=== PATIENT | male | born 1975 | race Caucasian/White ===

== ENCOUNTER 2016-08-07 19:33 | Observation (INO) | payer MEDICAID ==
[2016-08-07] MEDS ORDERED: ONDANSETRON PF 4 MG/2 ML VIAL. IV PRN (20:00)
[2016-08-07] MEDS ORDERED: ENOXAPARIN 40 MG/0.4 ML DISP.SYRIN. SQ SCH (20:00)
[2016-08-07] MEDS ORDERED: ACETAMINOPHEN 325 MG TABLET. PO PRN (20:00)
--- NOTE | 2016-08-07 20:06 | PDOC1 ---
History and Physical Date of Admission Date of Admission 08/07/16 Identification/Chief Complaint Chief Complaint cannot take care of himself Problems: Source Source: Caregiver, Chart review History of Present Illness History of Present Illness 41yo M, with h/o cerebral palsy, HLD, was found with his Mon in the car by the maintenance and custodian supervisor who sent the Mom to ER for AMS. hiS Mom, Monique Stout, is admitted today for AMS, amnesia. coming from [facility]. Pt is wheel chair bound, cannot live alone, ER nurse cannot reach the father, and another relative in [facility] cannot take him home today. As per the mother, who is also a patient now, who said he is doing ok, except some pain in scrotum area. Pt can answer a few questions, knows it is in hospital but cannot tell the name, can tell us he is hungry and pain. I was called to admit this patient because he cannot live alone, no place to go now, need SW. Past Medical History Past Medical History cerebral palsy, hld Past Surgical History Past Surgical History: No pertinent history Family History Family History Mother has psych issues, dm2 Social History Smoke: No ALCOHOL: none Drugs: None Current Problem List Problem List Problems Medical Problems: (1) Cerebral palsy Status: Acute ROS Review of System CONSTITUTIONAL: No fever or chills EYES: No recent changes SKIN: No rash or itching CARDIOVASCULAR: No chest pain, syncope, palpitations, or edema RESPIRATORY: No SOB or cough GASTROINTESTINAL: No nausea, vomiting or abdominal pain NEUROLOGICAL: No headaches or weakness ENDOCRINE: No cold or heat intolerance GENITOURINARY: No urgency or frequency of urination MUSCULOSKELETAL: No back pain or joint pain LYMPHATICS: No enlarged lymph nodes PSYCHIATRIC: No anxiety or depression Physical Exam Physical Exam GEN.: No apparent distress. Alert and orientedx2 HEENT: Head is normocephalic, atraumatic NECK: Supple. LUNGS: Clear to auscultation. HEART: RRR, S1, S2 present. Peripheral pulses intact ABDOMEN: Soft, nontender. Positive bowel sounds. EXTREMITIES: Without any cyanosis. NEUROLOGIC: Normal speech, normal tone. cannot move lower ext, upper ext bl symmetrically weak, 3/5. PSYCHIATRIC: Normal affect, normal mood. SKIN: No ulcerations. scrotum area some redness, no ulcer VTE Prophylaxis Ordered VTE Prophylaxis Devices: Yes VTE Pharmacological Prophylaxi: Yes Assessment/Plan Assessment/Plan 1. cerebral palsy, cannot take care of himself, need place to go 2. HLD 3. itchness of scrotum area plan: 1. SW consult need find relatives, or SNF 2. will double check with nurse to see if there is any wound around scrotum and groin area. may need nystatin cream labs need home meds dvt ppx wheel chair bound HENRRY MAGALLON MD Aug 07, 2016 20:06
[2016-08-07 20:48] VITALS: BP 129/92
[2016-08-07 21:18] LABS: BASO % 0 % (0-3); EOS % 1 % (0-3); HEMATOCRIT 46.3 % (39.0-53.0); HEMOGLOBIN 15.8 g/dL (13.0-17.5); LYMPH # 2.7 x10^3/uL (1.0-4.8); LYMPH % 45 % (24-48); MEAN CORPUSCULAR HEMOGLOBIN 31 pg (25-35); MEAN CORPUSCULAR HGB CONC 34 g/dL (31-37); MEAN CORPUSCULAR VOLUME 90 fL (79-100); MONO % 7 % (0-9); NEUT % 47 % (31-73); PLATELET COUNT 221 x10^3/uL (140-400); RED BLOOD COUNT 5.13 x10^6/uL (4.30-5.70); RED CELL DISTRIBUTION WIDTH 13.6 % (11.5-14.5)
[2016-08-07] MEDS ORDERED: CHOL200044 PO (22:48)
[2016-08-07] MEDS ORDERED: OMEG500C PO (22:48)
[2016-08-07] MEDS ORDERED: SERT50TA PO (22:48)
[2016-08-07] MEDS ORDERED: SIMV20TA3 PO (22:48)
[2016-08-07] MEDS ORDERED: CLOT15CR4 TP (22:49)
[2016-08-07 22:51] LABS: CALCIUM 9.4 mg/dL (8.5-10.1); CREATININE 0.8 mg/dL (0.7-1.3); GFR 107.6; POTASSIUM 3.1 mmol/L (3.5-5.1)
[2016-08-07 23:02] VITALS: BP 128/82
[2016-08-07] MEDS: HYDROCODONE/APAP 5/325MG TABLET. PO PRN (23:19)
[2016-08-07] MEDS ORDERED: INUL2TAB4 PO (23:29)
[2016-08-08 03:05] VITALS: BP 118/65
[2016-08-08 07:00] VITALS: BP 124/86
[2016-08-08] MEDS ORDERED: POTASSIUM CHLORIDE 20 MEQ TABLET.ER. PO ONE (08:45)
[2016-08-08] MEDS ORDERED: NYSTATIN 100,000 UNIT/GM TOPICAL CREAM 15GM TUBE. TP SCH (09:00)
[2016-08-08] MEDS: HYDROCODONE/APAP 5/325MG TABLET. PO PRN ×2 (09:56→10:02)
[2016-08-08] MEDS ORDERED: CLOTRIMAZOLE 1% TOPICAL CREAM 15GM TUBE. TP SCH (10:00)
--- NOTE | 2016-08-08 10:13 | PDOC ---
PROGRESS NOTES Chief Complaint Chief Complaint 1. cerebral palsy, chronic weakness and debility, poor mental status is at baseline, cannot take care of himself, 2. HLD 3. rash and pain in scrotum area 4. ? depression or anxiety, on sertraline at home, continue 5. hypokalemia, 40 PO History of Present Illness History of Present Illness SW consult need find relatives, may be able to locate today consult wound care for pain in scrotum and groin area. may need nystatin cream wheel chair bound Vitals Vitals Vital Signs Date Time Temp Pulse Resp B/P Pulse Ox O2 Delivery O2 Flow Rate FiO2 08/08/16 07:00 97.8 82 18 124/86 96 Room Air 97.8 Physical Exam Physical Exam very cooperative and pleasant General: Alert, Cooperative, No acute distress, Other (not oriented) Heart: Regular rate, Normal S1 Lungs: Clear Abdomen: Normal bowel sounds Extremities: No clubbing, No edema Labs LABS Laboratory Tests Test 08/07/16 20:50 White Blood Count 6.0x10^3/uL (4.0-11.0) Red Blood Count 5.13x10^6/uL (4.30-5.70) Hemoglobin 15.8g/dL (13.0-17.5) Hematocrit 46.3% (39.0-53.0) Mean Corpuscular Volume 90fL (79-100) Mean Corpuscular Hemoglobin 31pg (25-35) Mean Corpuscular Hemoglobin Concent 34g/dL (31-37) Red Cell Distribution Width 13.6% (11.5-14.5) Platelet Count 221x10^3/uL (140-400) Neutrophils (%) (Auto) 47% (31-73) Lymphocytes (%) (Auto) 45% (24-48) Monocytes (%) (Auto) 7% (0-9) Eosinophils (%) (Auto) 1% (0-3) Basophils (%) (Auto) 0% (0-3) Neutrophils # (Auto) 2.8x10^3uL (1.8-7.7) Lymphocytes # (Auto) 2.7x10^3/uL (1.0-4.8) Monocytes # (Auto) 0.4x10^3/uL (0.0-1.1) Eosinophils # (Auto) 0.1x10^3/uL (0.0-0.7) Basophils # (Auto) 0.0x10^3/uL (0.0-0.2) Sodium Level 144mmol/L (136-145) Potassium Level 3.1mmol/L (3.5-5.1) Chloride Level 105mmol/L (98-107) Carbon Dioxide Level 27mmol/L (21-32) Anion Gap 12 (6-14) Blood Urea Nitrogen 18mg/dL (8-26) Creatinine 0.8mg/dL (0.7-1.3) Estimated GFR (Cockcroft-Gault) 107.6 Glucose Level 131mg/dL (70-99) Calcium Level 9.4mg/dL (8.5-10.1) Assessment and Plan Assessmemt and Plan Problems Medical Problems: (1) Cerebral palsy Status: Acute Problems: Comment Review of Relevant I have reviewed the following items geoff (where applicable) has been applied. Labs Laboratory Tests Test 08/07/16 20:50 White Blood Count 6.0x10^3/uL (4.0-11.0) Red Blood Count 5.13x10^6/uL (4.30-5.70) Hemoglobin 15.8g/dL (13.0-17.5) Hematocrit 46.3% (39.0-53.0) Mean Corpuscular Volume 90fL (79-100) Mean Corpuscular Hemoglobin 31pg (25-35) Mean Corpuscular Hemoglobin Concent 34g/dL (31-37) Red Cell Distribution Width 13.6% (11.5-14.5) Platelet Count 221x10^3/uL (140-400) Neutrophils (%) (Auto) 47% (31-73) Lymphocytes (%) (Auto) 45% (24-48) Monocytes (%) (Auto) 7% (0-9) Eosinophils (%) (Auto) 1% (0-3) Basophils (%) (Auto) 0% (0-3) Neutrophils # (Auto) 2.8x10^3uL (1.8-7.7) Lymphocytes # (Auto) 2.7x10^3/uL (1.0-4.8) Monocytes # (Auto) 0.4x10^3/uL (0.0-1.1) Eosinophils # (Auto) 0.1x10^3/uL (0.0-0.7) Basophils # (Auto) 0.0x10^3/uL (0.0-0.2) Sodium Level 144mmol/L (136-145) Potassium Level 3.1mmol/L (3.5-5.1) Chloride Level 105mmol/L (98-107) Carbon Dioxide Level 27mmol/L (21-32) Anion Gap 12 (6-14) Blood Urea Nitrogen 18mg/dL (8-26) Creatinine 0.8mg/dL (0.7-1.3) Estimated GFR (Cockcroft-Gault) 107.6 Glucose Level 131mg/dL (70-99) Calcium Level 9.4mg/dL (8.5-10.1) Laboratory Tests Test 08/07/16 20:50 White Blood Count 6.0x10^3/uL (4.0-11.0) Red Blood Count 5.13x10^6/uL (4.30-5.70) Hemoglobin 15.8g/dL (13.0-17.5) Hematocrit 46.3% (39.0-53.0) Mean Corpuscular Volume 90fL (79-100) Mean Corpuscular Hemoglobin 31pg (25-35) Mean Corpuscular Hemoglobin Concent 34g/dL (31-37) Red Cell Distribution Width 13.6% (11.5-14.5) Platelet Count 221x10^3/uL (140-400) Neutrophils (%) (Auto) 47% (31-73) Lymphocytes (%) (Auto) 45% (24-48) Monocytes (%) (Auto) 7% (0-9) Eosinophils (%) (Auto) 1% (0-3) Basophils (%) (Auto) 0% (0-3) Neutrophils # (Auto) 2.8x10^3uL (1.8-7.7) Lymphocytes # (Auto) 2.7x10^3/uL (1.0-4.8) Monocytes # (Auto) 0.4x10^3/uL (0.0-1.1) Eosinophils # (Auto) 0.1x10^3/uL (0.0-0.7) Basophils # (Auto) 0.0x10^3/uL (0.0-0.2) Sodium Level 144mmol/L (136-145) Potassium Level 3.1mmol/L (3.5-5.1) Chloride Level 105mmol/L (98-107) Carbon Dioxide Level 27mmol/L (21-32) Anion Gap 12 (6-14) Blood Urea Nitrogen 18mg/dL (8-26) Creatinine 0.8mg/dL (0.7-1.3) Estimated GFR (Cockcroft-Gault) 107.6 Glucose Level 131mg/dL (70-99) Calcium Level 9.4mg/dL (8.5-10.1) Medications Current Medications Ondansetron HCl (Zofran) 4 mg PRN Q6HRS PRN IV NAUSEA/VOMITING; Start 08/07/16 at 20:00 Acetaminophen/ Hydrocodone Bitart (Lortab 5/325) 1 tab PRN Q4HRS PRN PO MILD PAIN Last administered on 08/08/16 09:56; Start 08/07/16 at 20:00 Acetaminophen (Tylenol) 650 mg PRN Q6HRS PRN PO MILD PAIN / TEMP Last administered on 08/07/16 23:19; Start 08/07/16 at 20:00 Enoxaparin Sodium (Lovenox 40mg Syringe) 40 mg Q24H SQ Last administered on 23:19; Start 08/07/16 at 20:00 Nystatin (Mycostatin) 1 mamie BID TP Last administered on 08/08/16 09:00; Start 08/08/16 at 09:00 Potassium Chloride (Klor-Con) 40 meq 1X ONCE PO Last administered on 08:45; Start 08/08/16 at 08:45; Stop 08/08/16 at 08:46; Status DC Active Scripts Active Reported Fiber Gummies (Inulin) 2 Gm Tab.chew 2 Gm PO PRN BID PRN Clotrimazole 15 Gm Cream..g. 15 Gm TP BID Simvastatin 20 Mg Tablet 20 Mg PO HS D3-2000 (Cholecalciferol (Vitamin D3)) 2,000 Unit Capsule 1,000 Unit PO BID Fish Oil ([place]-3 Fatty Acids) 500 Mg Capsule. 1,000 Mg PO DAILY Zoloft (Sertraline Hcl) 50 Mg Tablet 50 Mg PO DAILY Vitals/I & O Vital Sign - Last 24 Hours 08/07/16 08/07/16 08/07/16 08/08/16 20:48 23:02 23:19 00:22 Temp 98.7 98.9 98.7 98.9 Pulse 98 94 Resp 16 17 B/P 129/92 128/82 Pulse Ox 94 93 93 O2 Delivery Room Air Room Air Room Air Room Air 08/08/16 08/08/16 08/08/16 00:24 03:05 07:00 Temp 99.1 97.8 99.1 97.8 Pulse 83 82 Resp 18 18 B/P 118/65 124/86 Pulse Ox 96 96 O2 Delivery Room Air Room Air Room Air Intake and Output 08/07/16 08/07/16 08/08/16 15:00 23:00 07:00 Intake Total 0 ml Output Total 780 ml Balance -780 ml LIONEL VOSS MD Aug 08, 2016 10:13
[2016-08-08] MEDS ORDERED: NON FORMULARY ITEM (Inulin (Fiber Gummies) 2 GM) PO PRN (10:15)
[2016-08-08] MEDS ORDERED: SERTRALINE 50 MG TABLET. PO SCH (10:15)
[2016-08-08] MEDS ORDERED: OMEGA-3 FATTY ACIDS/FISH OIL 1,000 MG CAPSULE. PO SCH (11:00)
[2016-08-08] MEDS ORDERED: CHOLECALCIFEROL (VITAMIN D3) 1,000 UNIT TABLET PO SCH (11:00)
[2016-08-08] MEDS ORDERED: POTASSIUM CHLORIDE 20 MEQ TABLET.ER. PO SCH (11:30)
[2016-08-08 11:35] VITALS: BP 121/64
--- NOTE | 2016-08-08 13:25 | PDOC3 ---
Discharge Summary Visit Information Date of Admission: Aug 07, 2016 Date of Discharge: Aug 08, 2016 Admitting Diagnosis: cerebral palsy Final Diagnosis 1. cerebral palsy, chronic weakness and debility, poor mental status is at baseline, cannot take care of himself, 2. HLD 3. rash and pain in scrotum area 4. depression or anxiety, on sertraline at home, 5. hypokalemia, Problems Medical Problems: (1) Cerebral palsy Status: Acute Brief Hospital Course Allergies Allergies Coded Allergies Type Severity Reaction Last Updated Verified promethazine Allergy Severe Anaphylaxis 08/07/16 Yes amoxicillin Allergy Intermediate Rash 08/07/16 Yes finasteride Allergy Intermediate 08/07/16 Yes Vital Signs Vital Signs Date Time Temp Pulse Resp B/P Pulse Ox O2 Delivery O2 Flow Rate FiO2 08/08/16 11:35 96.6 99 20 121/64 95 Room Air 96.6 Lab Results Laboratory Tests Test 08/07/16 20:50 White Blood Count 6.0x10^3/uL (4.0-11.0) Red Blood Count 5.13x10^6/uL (4.30-5.70) Hemoglobin 15.8g/dL (13.0-17.5) Hematocrit 46.3% (39.0-53.0) Mean Corpuscular Volume 90fL (79-100) Mean Corpuscular Hemoglobin 31pg (25-35) Mean Corpuscular Hemoglobin Concent 34g/dL (31-37) Red Cell Distribution Width 13.6% (11.5-14.5) Platelet Count 221x10^3/uL (140-400) Neutrophils (%) (Auto) 47% (31-73) Lymphocytes (%) (Auto) 45% (24-48) Monocytes (%) (Auto) 7% (0-9) Eosinophils (%) (Auto) 1% (0-3) Basophils (%) (Auto) 0% (0-3) Neutrophils # (Auto) 2.8x10^3uL (1.8-7.7) Lymphocytes # (Auto) 2.7x10^3/uL (1.0-4.8) Monocytes # (Auto) 0.4x10^3/uL (0.0-1.1) Eosinophils # (Auto) 0.1x10^3/uL (0.0-0.7) Basophils # (Auto) 0.0x10^3/uL (0.0-0.2) Sodium Level 144mmol/L (136-145) Potassium Level 3.1mmol/L (3.5-5.1) Chloride Level 105mmol/L (98-107) Carbon Dioxide Level 27mmol/L (21-32) Anion Gap 12 (6-14) Blood Urea Nitrogen 18mg/dL (8-26) Creatinine 0.8mg/dL (0.7-1.3) Estimated GFR (Cockcroft-Gault) 107.6 Glucose Level 131mg/dL (70-99) Calcium Level 9.4mg/dL (8.5-10.1) Laboratory Tests Test 08/07/16 20:50 White Blood Count 6.0x10^3/uL (4.0-11.0) Red Blood Count 5.13x10^6/uL (4.30-5.70) Hemoglobin 15.8g/dL (13.0-17.5) Hematocrit 46.3% (39.0-53.0) Mean Corpuscular Volume 90fL (79-100) Mean Corpuscular Hemoglobin 31pg (25-35) Mean Corpuscular Hemoglobin Concent 34g/dL (31-37) Red Cell Distribution Width 13.6% (11.5-14.5) Platelet Count 221x10^3/uL (140-400) Neutrophils (%) (Auto) 47% (31-73) Lymphocytes (%) (Auto) 45% (24-48) Monocytes (%) (Auto) 7% (0-9) Eosinophils (%) (Auto) 1% (0-3) Basophils (%) (Auto) 0% (0-3) Neutrophils # (Auto) 2.8x10^3uL (1.8-7.7) Lymphocytes # (Auto) 2.7x10^3/uL (1.0-4.8) Monocytes # (Auto) 0.4x10^3/uL (0.0-1.1) Eosinophils # (Auto) 0.1x10^3/uL (0.0-0.7) Basophils # (Auto) 0.0x10^3/uL (0.0-0.2) Sodium Level 144mmol/L (136-145) Potassium Level 3.1mmol/L (3.5-5.1) Chloride Level 105mmol/L (98-107) Carbon Dioxide Level 27mmol/L (21-32) Anion Gap 12 (6-14) Blood Urea Nitrogen 18mg/dL (8-26) Creatinine 0.8mg/dL (0.7-1.3) Estimated GFR (Cockcroft-Gault) 107.6 Glucose Level 131mg/dL (70-99) Calcium Level 9.4mg/dL (8.5-10.1) Brief Hospital Course Mr. Stout is a 41 old admit for being unable to care for self, and mom was admitted here for confusion. Cerebral palsy, wheelchair bound, needed assist to transfer and get food. DC home to family friend, lives in [place] Discharge Information Condition at Discharge: Improved Follow Up: Weeks Disposition/Orders: D/C to Home Scheduled Cholecalciferol (Vitamin D3) (D3-2000) 1,000 UNIT PO BID (Reported) Clotrimazole (Clotrimazole) 15 GM TP BID (Reported) [place]-3 Fatty Acids (Fish Oil) 1,000 MG PO DAILY (Reported) Sertraline Hcl (Zoloft) 50 MG PO DAILY (Reported) Simvastatin (Simvastatin) 20 MG PO HS (Reported) Scheduled PRN Inulin (Fiber Gummies) 2 GM PO PRN BID PRN PRN CONSTIPATION (Reported) LIONEL VOSS MD Aug 08, 2016 13:25
[2016-08-08 15:00] VITALS: BP 123/83
[2016-08-08] MEDS ORDERED: SIMVASTATIN 20 MG TABLET PO SCH (21:00)
== END 2016-08-08 19:05 | disposition short-term general hospital (02) ==
LOC: 5 NORTH 19:46 → INTOOBSV 19:46
PROVIDERS: ADMIT Internal Medicine; ATTEND Internal Medicine
DX: G80.9 Cerebral palsy, unspecified (principal); E78.5 Hyperlipidemia, unspecified; F32.9 Major depressive disorder, single episode, unspecified; F41.9 Anxiety disorder, unspecified; E87.6 Hypokalemia; R21 Rash and other nonspecific skin eruption; L29.1 Pruritus scroti; Z99.3 Dependence on wheelchair; Z83.3 Family history of diabetes mellitus
CPT/HCPCS: 36415; 80048; 85027; 96372; 97161; 97165; G0378; G0379; J1650